=== PATIENT | female | born 1985 | race Caucasian/White ===

== ENCOUNTER 2017-10-25 06:37 | Emergency (ER) | payer OTHER ==
--- NOTE | 2017-10-25 07:02 | ED Physician Documentation ---
PD HPI ABD PAIN - Stated complaint Stated Complaint: ABD PX - Chief complaint Chief Complaint: Abd Pain - History obtained from History obtained from: Patient - History of Present Illness Timing - onset: How many days ago (3) Timing - duration: Days (3) Timing - details: Gradual onset, Still present Quality: Sharp, Pain Location: Epigastric Radiation: Chest Improved by: Other (nothing) Worsened by: Other (nothing) Associated symptoms: Nausea. No: Fever, Vomiting, Hematemesis, Diarrhea, Constipation, Melena, Hematochezia, Dysuria, Hematuria, Chest pain, Dizzy, Near syncope / syncope, Loss of appetite, Weight loss Similar symptoms before: Has not had sx before Recently seen: Not recently seen - Additional information Additional information: 32-year-old female has developed epigastric pain and nausea about 3 days ago. She has not had these symptoms previously. She has been taking some Aleve or ibuprofen for headaches. She does state that she does take this sometimes without food. She denies any vomiting associated with this and denies any other specific symptoms. She states the pain is specifically in the epigastric region and there is a little bit of radiation into the chest. Review of Systems Constitutional: denies: Fever Eyes: denies: Decreased vision Ears: denies: Ear pain Nose: denies: Congestion Throat: denies: Sore throat Cardiac: denies: Chest pain / pressure, Palpitations Respiratory: denies: Dyspnea, Cough GI: reports: Abdominal Pain, Nausea. 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 10/25/17 Sucralfate [Carafate] 1 gm PO ACHS #30 tablet 10/25/17 - Allergies Allergies/Adverse Reactions: Allergies Allergy/AdvReac Type Severity Reaction Status Date / Time No Known Drug Allergies Allergy Verified 10/25/17 06:42 - Social History Does the pt smoke?: No Smoking Status: Never smoker Does the pt drink ETOH?: Yes Does the pt have substance abuse?: No - Family History Family history: reports: None (chrons) - Immunizations Immunizations are current?: Yes - POLST Patient has POLST: No PD ED PE NORMAL - Vitals Vital signs reviewed: Yes (hypertensive mild ) - General General: Alert and oriented X 3, No acute distress, Well developed/nourished - HEENT HEENT: Atraumatic, PERRL, EOMI - Neck Neck: Supple, no meningeal sign, No bony TTP - Cardiac Cardiac: RRR, No murmur - Respiratory Respiratory: No respiratory distress, Clear bilaterally - Abdomen Abdomen: Soft, Other (mild epigastric tenderness without garding or rebound. ) - Back Back: No CVA TTP, No spinal TTP - Derm Derm: Normal color, Warm and dry, No rash - Extremities Extremities: No deformity, No edema - Neuro Neuro: Alert and oriented X 3, solo musician 2-12 intact, No motor deficit, No sensory deficit, Normal speech Eye Opening: Spontaneous Motor: Obeys Commands Verbal: Oriented GCS Score: 15 - Psych Psych: Normal mood, Normal affect Results - Vitals Vitals: Vital Signs - 24 hr 10/25/17 06:42 Temperature 36.7 C Heart Rate 86 Respiratory 16 Rate Blood Pressure 108/82 H O2 Saturation 100 Oxygen O2 Source Room air - Labs Labs: Laboratory Tests 10/25/17 10/25/17 07:02 07:02 WBC 4.7 L RBC 4.28 Hgb 13.7 Hct 39.4 MCV 92.0 MCH 32.1 H MCHC 34.8 RDW 13.2 Plt Count 237 MPV 7.8 L Neut # (Auto) 2.6 Lymph # (Auto) 1.6 [place] # (Auto) 0.4 Eos # (Auto) 0.1 Baso # (Auto) 0.0 Absolute Nucleated RBC 0.00 Nucleated RBC % 0.1 Sodium 135 Potassium 3.7 Chloride 102 Carbon Dioxide 26 Anion Gap 7.0 BUN 12 Creatinine 0.9 Estimated GFR (MDRD) 72 L Glucose 102 H Calcium 9.3 Total Bilirubin 0.8 AST 20 ALT 19 Alkaline Phosphatase 47 Total Protein 7.8 Albumin 4.2 Globulin 3.6 Albumin/Globulin Ratio 1.2 Lipase 36 PD MEDICAL DECISION MAKING - ED course Complexity details: reviewed old records, reviewed results, re-evaluated patient , considered differential, d/w patient, d/w family ED course: 32-year-old female with epigastric pain has her pain relieved with the use of viscous lidocaine and Mylanta. I suspect she has a nonsteroidal induced gastritis without bleeding and I have counseled the patient on the use of nonsteroidals with food and treatment of this to include acid reduction and Carafate. - Sepsis Event Vital Signs: Vital Signs - 24 hr 10/25/17 06:42 Temperature 36.7 C Heart Rate 86 Respiratory 16 Rate Blood Pressure 108/82 H O2 Saturation 100 Oxygen O2 Source Room air Departure - Departure Disposition: Home, Self Care Clinical Impression: Gastritis Qualifiers: Gastritis type: other gastritis Chronicity: acute Gastritis bleeding: without bleeding Qualified Code(s): K29.00 - Acute gastritis without bleeding Condition: Stable Instructions: ED PUD Vs Gastritis Follow-Up: Jean-Claude Beasley PA-C [Primary Care Provider] - Prescriptions: Esomeprazole Magnesium [Nexium] 20 mg PO DAILY #20 capsule. Sucralfate [Carafate] 1 gm PO ACHS #30 tablet Comments: Today it appears your abdominal pain is related to use of nonsteroidal anti- inflammatory without food. Do not use ibuprofen Aleve or aspirin and take the Nexium on a regular basis as well as the Carafate for at least 1 week.
[2017-10-25 07:09] LABS: BASOPHILS % (AUTO) 0.5 %; EOSINOPHILS # (AUTO) 0.1 10^3/uL (0.0-0.7); EOSINOPHILS % (AUTO) 1.8 %; HGB - HEMOGLOBIN 13.7 g/dL (12.0-16.0); LYMPHOCYTES # (AUTO) 1.6 10^3/uL (1.5-3.5); LYMPHOCYTES % (AUTO) 34.4 %; MEAN CORPUSCULAR HEMOGLOBIN 32.1 pg (27.0-31.0); MEAN CORPUSCULAR HGB CONC 34.8 g/dL (32.0-36.0); MEAN PLATELET VOLUME 7.8 fL (7.9-10.8); MONOCYTES # (AUTO) 0.4 10^3/uL (0.0-1.0); MONOCYTES % (AUTO) 8.5 %; NEUTROPHILS # (AUTO) 2.6 10^3/uL (1.5-6.6); NEUTROPHILS % (AUTO) 54.8 %; PLT - PLATELET COUNT 237 10^3/uL (130-450); RED BLOOD COUNT 4.28 10^6/uL (4.20-5.40); RED CELL DISTRIBUTION WIDTH 13.2 % (12.0-15.0); WHITE BLOOD COUNT 4.7 x10^3/uL (4.8-10.8)
[2017-10-25] MEDS ORDERED: LIDOCAINE VISCOUS 2% 15 ML UDC MM STA (07:09)
[2017-10-25] MEDS ORDERED: MAG HYDROX/AL HYDROX/SIMETH 30 ML UDC PO STA (07:09)
[2017-10-25 07:20] LABS: ALBUMIN 4.2 g/dL (3.2-5.5); ALBUMIN/GLOBULIN RATIO 1.2 (1.0-2.2); BILIRUBIN,TOTAL 0.8 mg/dL (0.2-1.0); CALCIUM 9.3 mg/dL (8.5-10.3); CREATININE 0.9 mg/dL (0.4-1.0); TOTAL PROTEIN 7.8 g/dL (6.7-8.2)
[2017-10-25 07:36] LABS: BILIRUBIN,URINE NEGATIVE (NEGATIVE); GLUCOSE, URINE (UA) NEGATIVE (NEGATIVE); KETONES,URINE (UA) NEGATIVE (NEGATIVE); LEUKOCYTE ESTERASE, URINE NEGATIVE (NEGATIVE); NITRITE,URINE NEGATIVE (NEGATIVE); OCCULT BLOOD,URINE TRACE-LYSE (NEGATIVE); PH,URINE 5.5 PH (5.0-7.5); PROTEIN,URINE NEGATIVE (NEGATIVE); UROBILINOGEN,URINE 0.2 (NORMAL) E.U./dL (NORMAL)
[2017-10-25 07:39] LABS: CLARITY,URINE CLEAR (CLEAR)
[2017-10-25 07:47] VITALS: BP 110/84
== END 2017-10-25 07:48 | disposition home or self-care (01) ==
LOC: ED 06:37
DX: K29.00 Acute gastritis without bleeding (principal)
CPT/HCPCS: 36415; 80053; 81003; 83690; 85025; 99283; A9270; 81001; 87086

== ENCOUNTER 2018-01-20 06:08 | Emergency (ER) | payer OTHER ==
[2018-01-20 06:41] LABS: BASOPHILS % (AUTO) 0.5 %; EOSINOPHILS # (AUTO) 0.1 10^3/uL (0.0-0.7); EOSINOPHILS % (AUTO) 1.6 %; HGB - HEMOGLOBIN 13.7 g/dL (12.0-16.0); LYMPHOCYTES # (AUTO) 1.5 10^3/uL (1.5-3.5); LYMPHOCYTES % (AUTO) 31.6 %; MEAN CORPUSCULAR HEMOGLOBIN 31.1 pg (27.0-31.0); MEAN CORPUSCULAR HGB CONC 33.9 g/dL (32.0-36.0); MEAN CORPUSCULAR VOLUME 91.8 fL (81.0-99.0); MEAN PLATELET VOLUME 8.9 fL (7.9-10.8); MONOCYTES # (AUTO) 0.5 10^3/uL (0.0-1.0); MONOCYTES % (AUTO) 10.1 %; NEUTROPHILS # (AUTO) 2.6 10^3/uL (1.5-6.6); NEUTROPHILS % (AUTO) 56.2 %; PLT - PLATELET COUNT 209 10^3/uL (130-450); RED CELL DISTRIBUTION WIDTH 13.4 % (12.0-15.0); WHITE BLOOD COUNT 4.7 x10^3/uL (4.8-10.8)
[2018-01-20 06:50] LABS: ALBUMIN 4.4 g/dL (3.2-5.5); ALBUMIN/GLOBULIN RATIO 1.3 (1.0-2.2); BILIRUBIN,TOTAL 0.7 mg/dL (0.2-1.0); CALCIUM 9.3 mg/dL (8.5-10.3); CREATININE 0.9 mg/dL (0.4-1.0); TOTAL PROTEIN 7.9 g/dL (6.7-8.2)
--- NOTE | 2018-01-20 07:05 | ED Physician Documentation ---
PD HPI ABD PAIN - Stated complaint Stated Complaint: SIDE PX/NAUSEA - Chief complaint Chief Complaint: Abd Pain - History obtained from History obtained from: Patient - History of Present Illness Timing - onset: Yesterday Timing - duration: Days (1) Timing - details: Abrupt onset, Still present, Waxing and waning Quality: Aching, Sharp, Pain Location: RUQ Radiation: Right flank Worsened by: Eating, Moving. No: Breathing Associated symptoms: Nausea. No: Fever, Vomiting, Diarrhea, Chest pain Similar symptoms before: Has not had sx before Recently seen: Not recently seen Review of Systems Constitutional: denies: Fever, Chills, Myalgias Nose: denies: Rhinorrhea / runny nose, Congestion Throat: denies: Sore throat Respiratory: denies: Cough GI: reports: Abdominal Pain, Nausea. 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: Yes - POLST Patient has POLST: No PD ED PE NORMAL - Vitals Vital signs reviewed: Yes - General General: Alert and oriented X 3, Well developed/nourished, Other (appears unc omfortable) - HEENT HEENT: Pharynx benign - Neck Neck: Supple, no meningeal sign, No adenopathy - Cardiac Cardiac: RRR, No murmur - Respiratory Respiratory: Clear bilaterally - Abdomen Abdomen: Normal bowel sounds, Soft, Non distended, No organomegaly, Other (tender right upper to mid abd, with mild guarding but no percussion nor rebound tenderness. ) Results - Vitals Vitals: Vital Signs - 24 hr 01/20/18 01/20/18 06:10 09:18 Temperature 36.6 C Heart Rate 97 67 Respiratory 18 16 Rate Blood Pressure 122/86 H 108/77 O2 Saturation 99 100 Oxygen O2 Source Room air - Labs Labs: Laboratory Tests 01/20/18 01/20/18 01/20/18 06:25 06:25 07:35 WBC 4.7 L RBC 4.40 Hgb 13.7 Hct 40.4 MCV 91.8 MCH 31.1 H MCHC 33.9 RDW 13.4 Plt Count 209 MPV 8.9 Neut # (Auto) 2.6 Lymph # (Auto) 1.5 [place] # (Auto) 0.5 Eos # (Auto) 0.1 Baso # (Auto) 0.0 Absolute Nucleated RBC 0.00 Nucleated RBC % 0.0 Sodium 134 L Potassium 3.7 Chloride 100 L Carbon Dioxide 26 Anion Gap 8.0 BUN 10 Creatinine 0.9 Estimated GFR (MDRD) 72 L Glucose 92 Calcium 9.3 Total Bilirubin 0.7 AST 18 ALT 13 Alkaline Phosphatase 58 Total Protein 7.9 Albumin 4.4 Globulin 3.5 Albumin/Globulin Ratio 1.3 Lipase 32 Urine Color YELLOW Urine Clarity CLEAR Urine pH 5.5 Ur Specific [place] 1.025 Urine Protein NEGATIVE Urine Glucose (UA) NEGATIVE Urine Ketones 40 H Urine Occult Blood SMALL H Urine Nitrite NEGATIVE Urine Bilirubin NEGATIVE Urine Urobilinogen 0.2 (NORMAL) Ur Leukocyte Esterase NEGATIVE Urine RBC 0-5 Urine WBC 0-3 Ur Squamous Epith Cells FEW Squamous Urine Bacteria Few Ur Microscopic Review INDICATED Urine Culture Comments NOT INDICATED Urine HCG, Qual 01/20/18 07:35 WBC RBC Hgb Hct MCV MCH MCHC RDW Plt Count MPV Neut # (Auto) Lymph # (Auto) [place] # (Auto) Eos # (Auto) Baso # (Auto) Absolute Nucleated RBC Nucleated RBC % Sodium Potassium Chloride Carbon Dioxide Anion Gap BUN Creatinine Estimated GFR (MDRD) Glucose Calcium Total Bilirubin AST ALT Alkaline Phosphatase Total Protein Albumin Globulin Albumin/Globulin Ratio Lipase Urine Color Urine Clarity Urine pH Ur Specific [place] 1.025 Urine Protein Urine Glucose (UA) Urine Ketones Urine Occult Blood Urine Nitrite Urine Bilirubin Urine Urobilinogen Ur Leukocyte Esterase Urine RBC Urine WBC Ur Squamous Epith Cells Urine Bacteria Ur Microscopic Review Urine Culture Comments Urine HCG, Qual NEGATIVE - Rads (name of study) RUQ U/S Radiology: Prelim report reviewed (no acute process; normal) PD MEDICAL DECISION MAKING - ED course Complexity details: re-evaluated patient (improved with GI cocktail, so likely localizes it to stomach/duodenum. ), considered differential, d/w patient Departure - Departure Disposition: 01 Home, Self Care Clinical Impression: Abdominal pain Qualifiers: Abdominal location: upper abdomen, unspecified Qualified Code(s): R10.10 - Upper abdominal pain, unspecified Condition: Stable Record reviewed to determine appropriate education?: Yes Instructions: ED Gastritis Follow-Up: ANOOP AN PA-C [Primary Care Provider] - Prescriptions: Famotidine 20 mg PO DAILY #30 tablet Sucralfate 1 gm PO TID #30 tablet Tramadol HCl 50 mg PO Q6H PRN #15 tablet PRN Reason: Pain Comments: Your blood tests and ultrasound are normal here. Things that will not show up on that would be musculoskeletal pain but that should not have been impacted by the GI cocktail. I presume then that you have some irritation of the stomach or intestine (gastritis/duodenitis). We will treat that with medication to reduce stomach acids and coat the stomach and intestine. Use Tylenol or tramadol if needed for pain. Follow-up with your primary care if not improved over the next several days. Return sooner if worsening. Discharge Date/Time: 01/20/18 09:20
--- NOTE | 2018-01-20 07:42 | Ultrasound Report ---
Reason: RUQ pain Procedure Date: 01/20/2018 Accession Number: [id number] / [id number] Procedure: US - Abdomen Limited CPT Code: FULL RESULT: EXAM: ABDOMEN ULTRASOUND LIMITED, RUQ EXAM DATE: 01/20/2018 07:03 AM. CLINICAL HISTORY: RUQ pain. COMPARISON: None. TECHNIQUE: Real-time scanning was performed with static images obtained. FINDINGS: Liver: Normal in size and echotexture. 2 cm simple cyst in the left lobe. 14 cm. Main portal vein flow: Hepatopetal. Gallbladder: Normal. No stones, wall thickening, or sonographic Lovelace's sign. Biliary System: CBD measures 6 mm. No intrahepatic or extrahepatic ductal dilatation. Other: No right hydronephrosis. IMPRESSION: No cholelithiasis or evidence of cholecystitis. RADIA
[2018-01-20] MEDS ORDERED: MAG HYDROX/AL HYDROX/SIMETH 30 ML UDC PO STA (07:48)
[2018-01-20] MEDS ORDERED: LIDOCAINE VISCOUS 2% 15 ML UDC MM STA (07:48)
[2018-01-20 07:57] LABS: BILIRUBIN,URINE NEGATIVE (NEGATIVE); GLUCOSE, URINE (UA) NEGATIVE (NEGATIVE); KETONES,URINE (UA) 40 mg/dL (NEGATIVE); LEUKOCYTE ESTERASE, URINE NEGATIVE (NEGATIVE); NITRITE,URINE NEGATIVE (NEGATIVE); OCCULT BLOOD,URINE SMALL (NEGATIVE); PH,URINE 5.5 PH (5.0-7.5); PROTEIN,URINE NEGATIVE (NEGATIVE); UROBILINOGEN,URINE 0.2 (NORMAL) E.U./dL (NORMAL)
[2018-01-20 08:01] LABS: CLARITY,URINE CLEAR (CLEAR)
[2018-01-20 08:02] LABS: HCG UR QUAL NEGATIVE
[2018-01-20 08:07] LABS: RBC,URINE 0-5 /HPF (0-5); SQUAMOUS EPITHELIAL CELL,UR FEW Squamous (<= Few)
[2018-01-20 08:08] LABS: BACTERIA,URINE Few /HPF (None Seen)
[2018-01-20] MEDS ORDERED: MORPHINE 2 MG/ML CARPUJECT IVP STA (08:30)
[2018-01-20] MEDS ORDERED: FAMOTIDINE 20 MG/50 ML 50 ML IV ONE (08:31)
[2018-01-20] MEDS ORDERED: SUCRALFATE 1 GM/10 ML UDC PO STA (08:31)
[2018-01-20 09:20] VITALS: BP 108/77
== END 2018-01-20 09:20 | disposition home or self-care (01) ==
LOC: ED 06:08
DX: R10.11 Right upper quadrant pain (principal)
CPT/HCPCS: 36415; 76705; 80053; 81001; 81025; 83690; 85025; 96365; 96375; 99283; A9270; 81003; 87086

== ENCOUNTER 2018-09-06 19:28 | Emergency (ER) | payer OTHER ==
[2018-09-06 19:56] LABS: BASOPHILS % (AUTO) 0.4 %; EOSINOPHILS # (AUTO) 0.3 10^3/uL (0.0-0.7); EOSINOPHILS % (AUTO) 4.6 %; HGB - HEMOGLOBIN 12.8 g/dL (12.0-16.0); LYMPHOCYTES # (AUTO) 2.3 10^3/uL (1.5-3.5); LYMPHOCYTES % (AUTO) 34.5 %; MEAN CORPUSCULAR HEMOGLOBIN 30.8 pg (27.0-31.0); MEAN CORPUSCULAR HGB CONC 32.7 g/dL (32.0-36.0); MEAN CORPUSCULAR VOLUME 94.2 fL (81.0-99.0); MEAN PLATELET VOLUME 10.1 fL (7.9-10.8); MONOCYTES # (AUTO) 0.5 10^3/uL (0.0-1.0); MONOCYTES % (AUTO) 7.8 %; NEUTROPHILS # (AUTO) 3.5 10^3/uL (1.5-6.6); NEUTROPHILS % (AUTO) 52.6 %; PLT - PLATELET COUNT 221 10^3/uL (130-450); RED BLOOD COUNT 4.16 10^6/uL (4.20-5.40); RED CELL DISTRIBUTION WIDTH 13.1 % (12.0-15.0); WHITE BLOOD COUNT 6.7 x10^3/uL (4.8-10.8)
[2018-09-06 20:09] LABS: ALBUMIN 4.2 g/dL (3.2-5.5); ALBUMIN/GLOBULIN RATIO 1.2 (1.0-2.2); BILIRUBIN,TOTAL 0.6 mg/dL (0.2-1.0); CALCIUM 9.7 mg/dL (8.5-10.3); CREATININE 0.7 mg/dL (0.4-1.0); TOTAL PROTEIN 7.7 g/dL (6.7-8.2)
[2018-09-06 20:20] VITALS: BP 140/97
[2018-09-06] MEDS ORDERED: LIDOCAINE VISCOUS 2% 15 ML UDC MM STA (20:20)
[2018-09-06] MEDS ORDERED: FAMOTIDINE 20 MG TABLET PO STA (20:20)
[2018-09-06] MEDS ORDERED: PHENobarb/HYOSCY/ATROPINE/SCOP 5 ML SYRINGE PO STA (20:20)
[2018-09-06] MEDS ORDERED: MAG HYDROX/AL HYDROX/SIMETH 30 ML UDC PO STA ×2 (20:20→21:03)
[2018-09-06] MEDS ORDERED: SUCRALFATE 1 GM/10 ML UDC PO STA (20:20)
--- NOTE | 2018-09-06 20:20 | ED Physician Documentation ---
PD HPI ABD PAIN - Stated complaint Stated Complaint: ABDOMINAL PAIN - Chief complaint Chief Complaint: Abd Pain - History obtained from History obtained from: Patient - History of Present Illness Timing - onset: Today Timing - duration: Days (1) Timing - details: Abrupt onset, Waxing and waning Pain level max: 9 Pain level now: 9 Quality: Sharp Location: Epigastric Radiation: No: Chest, , Lower back, Left flank, Left shoulder, Right flank, Right shoulder, Upper back Improved by: Other (nothing) Worsened by: Other (nothing) Associated symptoms: No: Fever, Nausea, Vomiting, Hematemesis, Diarrhea, Constipation, Melena, Hematochezia, Dysuria, Hematuria, Chest pain, Dizzy Similar symptoms before: Work up / diagnostics (normal EGD per family.) Recently seen: Not recently seen Review of Systems Constitutional: denies: Fever, Chills Nose: denies: Rhinorrhea / runny nose, Congestion GI: denies: Vomiting, Diarrhea : denies: Dysuria, Frequency, Hesitancy, Now EGA Skin: denies: Rash Musculoskeletal: denies: Neck pain, Back pain PD PAST MEDICAL HISTORY - Past Medical History Past Medical History: No - Past Surgical History 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, 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 - Present Medications Home Medications: Ambulatory Orders Medication Instructions Recorded Confirmed Famotidine 20 mg PO DAILY #30 tablet 01/20/18 09/06/18 Sucralfate 1 gm PO TID #30 tablet 01/20/18 09/06/18 Tramadol HCl 50 mg PO Q6H PRN #15 tablet 01/20/18 09/06/18 Famotidine [Pepcid] 20 mg PO BID #60 tablet 09/06/18 Sucralfate [Carafate] 1 gm PO ACHS #60 tablet 09/06/18 - Allergies Allergies/Adverse Reactions: Allergies Allergy/AdvReac Type Severity Reaction Status Date / Time No Known Drug Allergies Allergy Verified 09/06/18 19:35 - Living Situation Living Situation: reports: With family Living Arrangement: reports: At home - Social History Does the pt smoke?: No Smoking Status: Never smoker Does the pt drink ETOH?: Yes Does the pt have substance abuse?: No - Family History Family history: reports: Non contributory - Immunizations Immunizations are current?: Yes - POLST Patient has POLST: No PD ED PE NORMAL - Vitals Vital signs reviewed: Yes - General General: Alert and oriented X 3, No acute distress, Well developed/nourished - HEENT HEENT: Moist mucous membranes - Neck Neck: Supple, no meningeal sign - Cardiac Cardiac: RRR, Strong equal pulses - Respiratory Respiratory: No respiratory distress, Clear bilaterally - Abdomen Abdomen: Soft, Non distended, Other (TTP epigastric, no peritoneal signs.) - Back Back: No CVA TTP, No spinal TTP - Derm Derm: Warm and dry - Extremities Extremities: No edema - Neuro Neuro: Alert and oriented X 3 - Psych Psych: Normal mood, Normal affect Results - Vitals Vitals: Vital Signs - 24 hr 09/06/18 09/06/18 09/06/18 19:29 20:18 21:13 Temperature 36.9 C Heart Rate 82 69 75 Respiratory 16 14 17 Rate Blood Pressure 142/92 H 140/97 H O2 Saturation 100 99 98 Oxygen O2 Source Room air - Labs Labs: Laboratory Tests 09/06/18 09/06/18 09/06/18 19:52 19:52 20:20 WBC 6.7 RBC 4.16 L Hgb 12.8 Hct 39.2 MCV 94.2 MCH 30.8 MCHC 32.7 RDW 13.1 Plt Count 221 MPV 10.1 Neut # (Auto) 3.5 Lymph # (Auto) 2.3 [place] # (Auto) 0.5 Eos # (Auto) 0.3 Baso # (Auto) 0.0 Absolute Nucleated RBC 0.00 Nucleated RBC % 0.0 Sodium 139 Potassium 3.9 Chloride 103 Carbon Dioxide 24 Anion Gap 12.0 BUN 15 Creatinine 0.7 Estimated GFR (MDRD) 95 Glucose 92 Calcium 9.7 Total Bilirubin 0.6 AST 16 ALT 14 Alkaline Phosphatase 58 Total Protein 7.7 Albumin 4.2 Globulin 3.5 Albumin/Globulin Ratio 1.2 Lipase 37 Urine Color YELLOW Urine Clarity CLEAR Urine pH 6.0 Ur Specific [place] 1.020 Urine Protein NEGATIVE Urine Glucose (UA) NEGATIVE Urine Ketones NEGATIVE Urine Occult Blood NEGATIVE Urine Nitrite NEGATIVE Urine Bilirubin NEGATIVE Urine Urobilinogen 0.2 (NORMAL) Ur Leukocyte Esterase NEGATIVE Ur Microscopic Review NOT INDICATED Urine Culture Comments NOT INDICATED Urine HCG, Qual 09/06/18 20:20 WBC RBC Hgb Hct MCV MCH MCHC RDW Plt Count MPV Neut # (Auto) Lymph # (Auto) [place] # (Auto) Eos # (Auto) Baso # (Auto) Absolute Nucleated RBC Nucleated RBC % Sodium Potassium Chloride Carbon Dioxide Anion Gap BUN Creatinine Estimated GFR (MDRD) Glucose Calcium Total Bilirubin AST ALT Alkaline Phosphatase Total Protein Albumin Globulin Albumin/Globulin Ratio Lipase Urine Color Urine Clarity Urine pH Ur Specific [place] 1.020 Urine Protein Urine Glucose (UA) Urine Ketones Urine Occult Blood Urine Nitrite Urine Bilirubin Urine Urobilinogen Ur Leukocyte Esterase Ur Microscopic Review Urine Culture Comments Urine HCG, Qual NEGATIVE PD MEDICAL DECISION MAKING - ED course Complexity details: reviewed results, re-evaluated patient, considered differential, d/w patient, d/w family ED course: Symptoms resolved with GI cocktail. Labs are normal. Will place on Carafate and Pepcid for home. We will follow-up with her doctor for further care. Counseled regarding dietary changes. Patient counseled regarding signs and symptoms for which I believe and urgent re-evaluation would be necessary. Patient with good understanding of and agreement to plan and is comfortable going home at this time This document was made in part using voice recognition software. While efforts are made to proofread this document, sound alike and grammatical errors may occur. Departure - Departure Disposition: Home, Self Care Clinical Impression: Gastritis Qualifiers: Gastritis type: unspecified gastritis Chronicity: acute Gastritis bleeding: without bleeding Qualified Code(s): K29.00 - Acute gastritis without bleeding Condition: Good Instructions: ED PUD Vs Gastritis Follow-Up: your,doctor in 1 week [Other] Prescriptions: Famotidine [Pepcid] 20 mg PO BID #60 tablet Sucralfate [Carafate] 1 gm PO ACHS #60 tablet Comments: Use the medications as prescribed. Follow-up with your doctor for further care. Avoid any spicy or fried foods. Return if you worsen. Discharge Date/Time: 09/06/18 21:30
[2018-09-06 20:30] LABS: BILIRUBIN,URINE NEGATIVE (NEGATIVE); GLUCOSE, URINE (UA) NEGATIVE (NEGATIVE); KETONES,URINE (UA) NEGATIVE (NEGATIVE); LEUKOCYTE ESTERASE, URINE NEGATIVE (NEGATIVE); NITRITE,URINE NEGATIVE (NEGATIVE); OCCULT BLOOD,URINE NEGATIVE (NEGATIVE); PROTEIN,URINE NEGATIVE (NEGATIVE); UROBILINOGEN,URINE 0.2 (NORMAL) E.U./dL (NORMAL)
[2018-09-06 20:32] LABS: CLARITY,URINE CLEAR (CLEAR); HCG UR QUAL NEGATIVE
== END 2018-09-06 21:30 | disposition home or self-care (01) ==
LOC: ED 19:28
DX: K29.00 Acute gastritis without bleeding (principal)
CPT/HCPCS: 36415; 80053; 81003; 81025; 83690; 85025; 99283; 99284; A9270; 81001; 87086

== ENCOUNTER 2019-11-17 11:05 | Emergency (ER) | payer OTHER ==
[2019-11-17] MEDS ORDERED: PENICILLIN VK 250 MG TABLET PO STA (11:33)
[2019-11-17] MEDS ORDERED: CHERRY SYRUP 10 ML UDC PO ONE (11:33)
[2019-11-17] MEDS ORDERED: DEXAMETHASONE 10 MG/ML VIAL PO STA (11:33)
--- NOTE | 2019-11-17 11:37 | ED Physician Documentation ---
History of Present Illness - Stated complaint Stated Complaint: THROAT SWELLING, RT EAR PX - Chief complaint Chief Complaint: Heent - History obtained from History obtained from: Patient - History of Present Illness Timing: How many weeks ago (1) Pain level max: 5 Pain level now: 5 - Additonal information Additional information: 34-year-old female presents to the emergency department with throat pain and right ear pain for the past week. No fevers. Increased pain with swallowing. Nothing makes it better. She is not , breast-feeding or trying to become . No sinus congestion. No cough. No coronavirus exposure. 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 - Present Medications Home Medications: Ambulatory Orders Medication Instructions Recorded Confirmed Famotidine 20 mg PO DAILY #30 tablet 01/20/18 09/06/18 Sucralfate 1 gm PO TID #30 tablet 01/20/18 09/06/18 Tramadol HCl 50 mg PO Q6H PRN #15 tablet 01/20/18 09/06/18 Famotidine [Pepcid] 20 mg PO BID #60 tablet 09/06/18 Sucralfate [Carafate] 1 gm PO ACHS #60 tablet 09/06/18 Penicillin V Potassium 500 mg PO Q6HR #40 tablet 11/17/19 - Allergies Allergies/Adverse Reactions: Allergies Allergy/AdvReac Type Severity Reaction Status Date / Time No Known Drug Allergies Allergy Verified 11/17/19 11:10 - Social History Does the pt smoke?: No Smoking Status: Never smoker Does the pt drink ETOH?: Yes Does the pt have substance abuse?: No - Immunizations Immunizations are current?: Yes - POLST Patient has POLST: No PD ED PE NORMAL - Vitals Vital signs reviewed: Yes - General General: Alert and oriented X 3, No acute distress - HEENT HEENT: Moist mucous membranes, Other (Posterior oropharynx is erythematous with tonsillar exudates. Normal phonation. No trismus. Uvula midline.) - Neck Neck: Supple, no meningeal sign, Other (shotty R anterior LAD) - Cardiac Cardiac: RRR - Respiratory Respiratory: No respiratory distress, Clear bilaterally - Abdomen Abdomen: Soft, Non tender, Non distended - Derm Derm: Warm and dry, No rash - Extremities Extremities: No calf tenderness / cord - Neuro Neuro: Alert and oriented X 3 Results - Vitals Vitals: Vital Signs - 24 hr 11/17/19 11:10 Temperature 36.9 C Heart Rate 83 Respiratory 16 Rate Blood Pressure 117/75 O2 Saturation 100 Oxygen O2 Source Room air PD MEDICAL DECISION MAKING - ED course Complexity details: considered differential, d/w patient ED course: Patient with what appears to be a right acute otitis media and likely strep pharyngitis. Will place on penicillin. Given dexamethasone as well. Tolerating p.o. without difficulty. She is well-hydrated. Patient is well- appearing, nontoxic. Afebrile. Patient counseled regarding signs and symptoms for which I believe and urgent re-evaluation would be necessary. Patient with good understanding of and agreement to plan and is comfortable going home at this time This document was made in part using voice recognition software. While efforts are made to proofread this document, sound alike and grammatical errors may occur. Departure - Departure Disposition: 01 Home, Self Care Clinical Impression: Pharyngitis Qualifiers: Pharyngitis/tonsillitis etiology: unspecified etiology Qualified Code(s): J02.9 - Acute pharyngitis, unspecified Condition: Good Instructions: ED Strep Pharyngitis Poss Follow-Up: J Carlos Doll MD [Primary Care Provider] - Within 1 week Prescriptions: Penicillin V Potassium 500 mg PO Q6HR #40 tablet Comments: Take all antibiotics until gone. Return if you worsen. Drink plenty of fluids and rest
[2019-11-17 11:58] VITALS: BP 120/65
[2019-11-17 12:01] LABS: RAPID STREP SCREEN Negative (Negative)
== END 2019-11-17 11:58 | disposition home or self-care (01) ==
LOC: ED 11:05
DX: J02.9 Acute pharyngitis, unspecified (principal); H92.01 Otalgia, right ear
CPT/HCPCS: 87070; 87430; 99283; 99284; A9270

== ENCOUNTER 2020-01-05 22:18 | Emergency (ER) | payer OTHER ==
[2020-01-05 22:38] LABS: BILIRUBIN,URINE NEGATIVE (NEGATIVE); GLUCOSE, URINE (UA) NEGATIVE (NEGATIVE); KETONES,URINE (UA) NEGATIVE (NEGATIVE); LEUKOCYTE ESTERASE, URINE NEGATIVE (NEGATIVE); NITRITE,URINE NEGATIVE (NEGATIVE); OCCULT BLOOD,URINE NEGATIVE (NEGATIVE); PROTEIN,URINE NEGATIVE (NEGATIVE); UROBILINOGEN,URINE 0.2 (NORMAL) E.U./dL (NORMAL)
[2020-01-05 22:39] LABS: CLARITY,URINE CLEAR (CLEAR)
[2020-01-05 22:40] LABS: HCG UR QUAL NEGATIVE
[2020-01-05 22:57] LABS: BASOPHILS % (AUTO) 0.3 %; EOSINOPHILS # (AUTO) 0.1 10^3/uL (0.0-0.7); EOSINOPHILS % (AUTO) 1.7 %; HGB - HEMOGLOBIN 13.7 g/dL (12.0-16.0); LYMPHOCYTES # (AUTO) 2.1 10^3/uL (1.5-3.5); MEAN CORPUSCULAR HEMOGLOBIN 31.1 pg (27.0-31.0); MEAN CORPUSCULAR HGB CONC 33.1 g/dL (32.0-36.0); MEAN CORPUSCULAR VOLUME 94.1 fL (81.0-99.0); MEAN PLATELET VOLUME 9.9 fL (7.9-10.8); MONOCYTES # (AUTO) 0.6 10^3/uL (0.0-1.0); MONOCYTES % (AUTO) 8.3 %; NEUTROPHILS % (AUTO) 58.3 %; PLT - PLATELET COUNT 254 10^3/uL (130-450); RED CELL DISTRIBUTION WIDTH 12.6 % (12.0-15.0); WHITE BLOOD COUNT 6.9 x10^3/uL (4.8-10.8)
[2020-01-05 23:06] LABS: ALBUMIN 4.3 g/dL (3.2-5.5); BILIRUBIN,TOTAL 0.4 mg/dL (0.2-1.0); CALCIUM 9.5 mg/dL (8.5-10.3); CREATININE 0.9 mg/dL (0.4-1.0)
[2020-01-05 23:14] LABS: TOTAL PROTEIN 8.4 g/dL (6.7-8.2)
[2020-01-05] MEDS ORDERED: LIDOCAINE VISCOUS 2% 15 ML UDC MM STA (23:53)
[2020-01-05] MEDS ORDERED: SUCRALFATE 1 GM/10 ML UDC PO STA (23:53)
[2020-01-05] MEDS ORDERED: MAG HYDROX/AL HYDROX/SIMETH 30 ML UDC PO STA (23:53)
--- NOTE | 2020-01-05 23:54 | ED Physician Documentation ---
PD HPI ABD PAIN - Stated complaint Stated Complaint: ABD PX - Chief complaint Chief Complaint: Abd Pain - History obtained from History obtained from: Patient - History of Present Illness Timing - onset: How many weeks ago (2) Timing - duration: Weeks (2) Timing - details: Gradual onset, Still present, Waxing and waning Quality: Sharp, Pain Location: Epigastric Radiation: No: Chest, , Lower back, Left flank, Left shoulder, Right flank, Right shoulder, Upper back Improved by: Meds Associated symptoms: No: Fever, Nausea, Vomiting, Hematemesis, Diarrhea, Constipation Similar symptoms before: Diagnosis (gastritis) Recently seen: Not recently seen - Additional information Additional information: 34-year-old female with a history of gastritis has been treated previously successfully with Nexium and sucralfate and this was about 2 years ago. She has been in to see a engine builder and she had negative scoping she continues t o have some issues. She was seen again in October put on famotidine and sucralfate for gastritis again responding to the GI cocktail. Today she indicates that she feels the medications are not working. She is vague about whether she is currently taking her medications. Review of Systems Constitutional: denies: Fever Eyes: denies: Decreased vision Ears: denies: Ear pain Nose: denies: Congestion Throat: denies: Sore throat Cardiac: denies: Chest pain / pressure, Palpitations Respiratory: denies: Dyspnea, Cough GI: reports: Abdominal Pain. 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 - Present Medications Home Medications: Ambulatory Orders Medication Instructions Recorded Confirmed Famotidine 20 mg PO DAILY #30 tablet 01/20/18 09/06/18 Sucralfate 1 gm PO TID #30 tablet 01/20/18 09/06/18 Tramadol HCl 50 mg PO Q6H PRN #15 tablet 01/20/18 09/06/18 Famotidine [Pepcid] 20 mg PO BID #60 tablet 09/06/18 Sucralfate [Carafate] 1 gm PO ACHS #60 tablet 09/06/18 Penicillin V Potassium 500 mg PO Q6HR #40 tablet 11/17/19 - Allergies Allergies/Adverse Reactions: Allergies Allergy/AdvReac Type Severity Reaction Status Date / Time No Known Drug Allergies Allergy Verified 01/05/20 22:27 - Social History Does the pt smoke?: No Smoking Status: Never smoker Does the pt drink ETOH?: Yes Does the pt have substance abuse?: No - Immunizations Immunizations are current?: Yes - POLST Patient has POLST: No PD ED PE NORMAL - Vitals Vital signs reviewed: Yes (Hypertensive) - General General: Alert and oriented X 3, No acute distress, Well developed/nourished - HEENT HEENT: Atraumatic, PERRL, EOMI - Neck Neck: Supple, no meningeal sign, No bony TTP - Cardiac Cardiac: RRR, No murmur - Respiratory Respiratory: No respiratory distress, Clear bilaterally - Abdomen Abdomen: Normal bowel sounds, Soft, Non distended, No organomegaly, Other (Epigastric tenderness is mild without guarding) - Back Back: No CVA TTP, No spinal TTP - Derm Derm: Normal color, Warm and dry, No rash - Extremities Extremities: No deformity, No edema - Neuro Neuro: Alert and oriented X 3, steward/stewardess night 2-12 intact, No motor deficit, No sensory deficit, Normal speech Eye Opening: Spontaneous Motor: Obeys Commands Verbal: Oriented GCS Score: 15 - Psych Psych: Normal mood, Normal affect Results - Vitals Vitals: Vital Signs - 24 hr 01/05/20 01/05/20 01/06/20 22:25 22:29 00:29 Temperature 36.4 C L 36.4 C L 36.5 C Heart Rate 76 76 72 Respiratory 20 20 18 Rate Blood Pressure 156/85 H 156/85 H 140/78 H O2 Saturation 99 99 99 Oxygen O2 Source Room air - Labs Labs: Laboratory Tests 01/05/20 01/05/20 01/05/20 22:30 22:45 22:45 WBC 6.9 RBC 4.40 Hgb 13.7 Hct 41.4 MCV 94.1 MCH 31.1 H MCHC 33.1 RDW 12.6 Plt Count 254 MPV 9.9 Neut # (Auto) 4.0 Lymph # (Auto) 2.1 [place] # (Auto) 0.6 Eos # (Auto) 0.1 Baso # (Auto) 0.0 Absolute Nucleated RBC 0.00 Nucleated RBC % 0.0 Sodium 137 Potassium 4.0 Chloride 99 L Carbon Dioxide 26 Anion Gap 12.0 BUN 19 Creatinine 0.9 Estimated GFR (MDRD) 71 L Glucose 91 Calcium 9.5 Total Bilirubin 0.4 AST 16 ALT 16 Alkaline Phosphatase 57 Total Protein 8.4 H Albumin 4.3 Globulin 4.1 Albumin/Globulin Ratio 1.0 Lipase 43 Urine Color YELLOW Urine Clarity CLEAR Urine pH 6.0 Ur Specific [place] 1.025 Urine Protein NEGATIVE Urine Glucose (UA) NEGATIVE Urine Ketones NEGATIVE Urine Occult Blood NEGATIVE Urine Nitrite NEGATIVE Urine Bilirubin NEGATIVE Urine Urobilinogen 0.2 (NORMAL) Ur Leukocyte Esterase NEGATIVE Ur Microscopic Review NOT INDICATED Urine Culture Comments NOT INDICATED Urine HCG, Qual NEGATIVE PD MEDICAL DECISION MAKING - ED course Complexity details: reviewed old records, reviewed results, re-evaluated patient, considered differential, d/w patient ED course: 34-year-old female with a recurrence of epigastric pain is again administered a GI cocktail consisting of 10 mL of viscous lidocaine and 30 mL of Mylanta and a gram of sucralfate. She had improvement in her pain associated with this. I offered to provide a proton pump inhibitor for the patient for treatment and she declined. She stated she wanted to talk to her engine builder about which medications to take. I offered explanation of the differences of the medications and recommended she take the Nexium. And again she declined. She will follow up with her engine builder. Departure - Departure Disposition: 01 Home, Self Care Clinical Impression: Gastritis Qualifiers: Gastritis type: unspecified gastritis Chronicity: acute Gastritis bleeding: without bleeding Qualified Code(s): K29.00 - Acute gastritis without bleeding Condition: Stable Instructions: ED PUD Vs Gastritis Follow-Up: J Carlos Doll MD [Primary Care Provider] - Comments: Today it appears you have gastritis again and the recommendation is to use a medication to reduce acid in the stomach such as famotadine or nexium and supplement this with Carafate. Discharge Date/Time: 01/06/20 00:28
[2020-01-06 00:30] VITALS: BP 140/78
== END 2020-01-06 00:28 | disposition home or self-care (01) ==
LOC: ED 22:18
DX: K29.00 Acute gastritis without bleeding (principal)
CPT/HCPCS: 36415; 80053; 81003; 81025; 83690; 85025; 99283; 99284; A9270; 81001; 87086

== ENCOUNTER 2023-09-12 08:00 | Outpatient (CLI) | payer OTHER | END 2023-09-12 23:59 | disposition home or self-care (01) | LOC: LAB.N 08:00 | PROVIDERS: ATTEND Physician Assistant Medical | DX: R10.32 Left lower quadrant pain (principal); Z87.42 Personal history of other diseases of the female genital tract | CPT/HCPCS: 87086 ==

== ENCOUNTER 2023-09-21 08:04 | Outpatient (CLI) | payer OTHER ==
--- NOTE | 2023-09-22 15:38 | Ultrasound Report ---
PROCEDURE: Pelvic w/Transvaginal INDICATIONS: OVARIAN CYST TECHNIQUE: Real-time scanning was performed of the pelvic organs, with image documentation. Additional endovagi nal scanning was necessary due to incomplete visualization of the adnexal and endometrial structures by transabdominal scanning. COMPARISON: None. FINDINGS: Uterus: Uterus is anteverted and normal in size at 11.9 x 4.8 x 7.1 cm. The myometrium is heterogen eous. The endometrium measures 7 mm in combined thickness. Mid posterior subserosal fibroid measuri ng 1.0 x 0.9 x 1.2 cm Ovaries: The right ovary measures 4.2 x 2.7 x 3.7 cm, with a calculated ovarian volume of 21.9 cc. S imple cyst measuring 2.4 x 2.2 x 2.8 cm. The left ovary measures 3.0 x 2.2 x 4.4 cm, with a calculate d ovarian volume of 15.2 cc. Simple cyst measuring 2.5 x 1.4 x 2.4 cm. The ovaries have a normal son ographic appearance. Less than 12 follicles can be seen in each ovary. No adnexal masses are seen. No cystic lesions measuring greater than 3 cm. Other: No pathologic free abdominal or pelvic fluid. IMPRESSION: 1.Bilateral ovarian simple cysts measuring less than 3 cm. No follow-up is necessary based on patient 's age. 2.Posterior subserosal fibroid measuring 1.2 cm. Reviewed by: Jv May MD on 09/22/2023 3:36 PM PDT Approved by: Jv May MD on 09/22/2023 3:36 PM PDT Station ID: [id number]
== END 2023-09-21 08:05 | disposition home or self-care (01) ==
LOC: DI 08:04
PROVIDERS: ATTEND Physician Assistant Medical
DX: N83.292 Other ovarian cyst, left side (principal); N83.291 Other ovarian cyst, right side; D25.2 Subserosal leiomyoma of uterus